=== PATIENT | male | born 1980 | race Caucasian/White ===

== ENCOUNTER 2023-02-10 08:25 | Inpatient (IN) | payer MEDICAID ==
[~2023-02-10] VITALS: Ht 170.2 cm; Wt 64.4 kg
--- NOTE | 2023-02-10 08:52 | NUR ---
at bedside exam in progress as pt. walked in.
[2023-02-10] MEDS ORDERED: IV NORMAL SALINE 1000 ML BAG IV ONE (09:00)
[2023-02-10] MEDS ORDERED: DEXTROSE 50% 50 ML DISP.SYRIN IV ONE (09:00)
[2023-02-10 09:15] LABS: HEMATOCRIT 35.4 % (36.7-47.1); MEAN CORPUSCULAR HEMOGLOBIN 31.1 uug (23.8-33.4); MEAN CORPUSCULAR VOLUME 96.4 fL (73.0-96.2); PLATELET COUNT (AUTO) 135 K/uL (152-348)
[2023-02-10 09:24] LABS: CARBON DIOXIDE 14 mmol/L (21-32); CHLORIDE 102 mmol/L (98-107); CREATININE 0.8 mg/dL (0.6-1.3); GLUCOSE 74 mg/dL (74-106); POTASSIUM 3.1 mmol/L (3.5-5.1); UREA NITROGEN, BLOOD 13 mg/dL (7-18)
[2023-02-10 09:33] LABS: ALANINE AMINOTRANSFERASE 114 U/L (16-63); ALKALINE PHOSPHATASE 50 U/L (50-136); ASPARTATE AMINOTRANSFERASE 143 U/L (15-37); BILIRUBIN,DIRECT 0.3 mg/dL (0.0-0.2); BILIRUBIN,TOTAL 0.9 mg/dL (0.2-1.0); ETHANOL < 3 MG/DL (0-0); TOTAL PROTEIN, SERUM 8.1 g/dL (6.4-8.2)
[2023-02-10 09:38] LABS: THYROID STIMULATING HORMONE 1.654 mIU/mL (0.358-3.740)
[2023-02-10 09:39] LABS: ACETAMINOPHEN < 2.0 ug/mL (10-30)
--- NOTE | 2023-02-10 10:03 | NUR ---
follow up accucheck 165. doctor aware
[2023-02-10] MEDS ORDERED: MAGNESIUM SULFATE/D5W 200 ML ONE (10:10)
[2023-02-10] MEDS ORDERED: ONDANSETRON 4 MG/2 ML VIAL IV ONE (10:15)
[2023-02-10] MEDS ORDERED: IV D5LR 1,000 ML IV ONE (10:15)
[2023-02-10] MEDS: MAGNESIUM SULFATE/D5W 100 ML IV SCH ×2 (10:17→11:07)
[2023-02-10] MEDS: POTASSIUM CHLORIDE 50 ML IV SCH ×3 (10:30→15:00)
[2023-02-10] MEDS ORDERED: CHLORDIAZEPOXIDE HCL 25 MG CAPSULE PO ONE (10:30)
--- NOTE | 2023-02-10 10:44 | NUR ---
Social Work consult was requested for a patient in the emergency room for homeless and substance abuse resources. Patient is a 42-year-old male. Patient is alert and oriented X4. Patient presents with depressed mood and congruent affect. Patient appears to be withdrawing from alcohol. Patient states he does not have a primary contact. Patient states he is homeless, and MILKA provided the patient with homeless resources for [facility] [place] [address] [place] [address] ([phone]) and [facility] [address] [facility] [address] ([phone]). MILKA gave resources for [employer] [facility] [address] [facility] [address]. Patient states he is not currently working, but he is receiving social security and wants to get his GED soon. Patient states he has a history of alcohol abuse, and his last drink was last night. MILKA provided the patient with substance abuse resources for [facility] [address] [facility] [address] ([phone]), [facility] [address] [facility] [address] ([phone]), and [address] [address] ([phone]). Patient appears ambivalent about treatment and states he was at [facility] two weeks ago and left. Patient states he has a history of anxiety and depression, and patient denies suicidal or homicidal ideation. MILKA provided the patient with the mental health resource for [facility] [address] [facility] [place] [address] ([phone]). MILKA provided the patient with a TAP card for discharge and patient states he will follow up with the resources provided.
[2023-02-10] MEDS ORDERED: CHLORDIAZEPOXIDE HCL 25 MG CAPSULE ONE (10:55)
--- NOTE | 2023-02-10 11:25 | NUR ---
on the phone with [facility] today.
--- NOTE | 2023-02-10 13:09 | NUR ---
SBP of 136/89, 98% FIO2. 100 HR NSR.
--- NOTE | 2023-02-10 13:12 | NUR ---
report received from Azalia MONTAÑO RN
--- NOTE | 2023-02-10 13:18 | NUR ---
Telephone report given to Luzmaria Yeh all questions answered.
[2023-02-10] MEDS ORDERED: CHLORDIAZEPOXIDE HCL 25 MG CAPSULE PO SCH (13:30)
[2023-02-10] MEDS ORDERED: MAGNESIUM HYDROXIDE 30 ML LIQUID UDC PO PRN (13:30)
[2023-02-10] MEDS ORDERED: ONDANSETRON 4 MG/2 ML VIAL IV PRN (13:30)
[2023-02-10] MEDS ORDERED: LORAZEPAM 2 MG/1 ML VIAL IV PRN (13:30)
[2023-02-10] MEDS ORDERED: REMEDY ESSENTIAL ZINC PASTE 113 GM TP PRN (13:30)
[2023-02-10] MEDS ORDERED: ACETAMINOPHEN 325 MG TABLET PO PRN (13:30)
--- NOTE | 2023-02-10 13:30 | NUR ---
MRSA and covid specimens collected and sent.
--- NOTE | 2023-02-10 13:31 | NUR ---
Awaiting test results to take pt. to room 316 Per protocol as I was informed by 3rd floor R.N. charge.
--- NOTE | 2023-02-10 14:20 | NUR ---
patient taken up to room 316 got situated in bed. and at this time seen by attending Thee Aleman. receiving rn endorse the finishing of potassium last 10 meq.
[2023-02-10 14:30] VITALS: BP 128/82
[2023-02-10] MEDS: IV NS 1000 ML 1,000 ML IV SCH (15:46)
[2023-02-10] MEDS ORDERED: FOLIC ACID 1 MG in IV DEXTROSE 5% 50 ML IV SCH (16:30)
[2023-02-10 16:32] LABS: *BLOOD, URINE 1+ (NEGATIVE); *CLARITY,URINE CLEAR (CLEAR); *COLOR,URINE YELLOW (YELLOW); *KETONES,URINE 3+ (NEGATIVE); *UROBILINOGEN,URINE 0.2 E.U./dl (NORMAL); LEUKOCYTE ESTERASE ,URINE NEGATIVE (NEGATIVE); NITRITE, URINE NEGATIVE (NEGATIVE); UGLUCOSE NEGATIVE (NEGATIVE)
[2023-02-10 16:40] LABS: *BILIRUBIN,URIN 1+ (NEGATIVE)
[2023-02-10 16:54] LABS: *AMPHETAMINE, URINE NEGATIVE (NEGATIVE); *CANNABINOID, URINE NEGATIVE (NEGATIVE); *COCCAINE, URINE NEGATIVE (NEGATIVE); *PHENCYCLIDINE SCREEN,URINE NEGATIVE (NEGATIVE)
[2023-02-10] MEDS ORDERED: THIAMINE HCL INJ 100 MG in IV DEXTROSE 5% 50 ML IV SCH (17:00)
[2023-02-10] MEDS ORDERED: POLYVINYL ALCOHOL OPHT DROPS 15 ML BOTTLE EACHEYE PRN (18:15)
[2023-02-10 19:25] LABS: BACTERIA,URINE NONE SEEN /HPF (NONE SEEN); WBC,URINE NONE SEEN /HPF (0-3)
[2023-02-10 19:26] LABS: SQUAMOUS EPITHELIAL CELL,UR NONE SEEN /HPF (NONE SEEN)
[2023-02-10 20:00] VITALS: BP 126/85
[2023-02-11] VITALS: BP 119/70
[2023-02-11] MEDS: IV NS 1000 ML 1,000 ML IV SCH ×2 (02:03→11:40)
[2023-02-11 04:00] VITALS: BP 116/74
[2023-02-11 06:46] LABS: HEMATOCRIT 32.5 % (36.7-47.1); MEAN CORPUSCULAR VOLUME 94.3 fL (73.0-96.2); PLATELET COUNT (AUTO) 126 K/uL (152-348)
[2023-02-11 07:21] LABS: CARBON DIOXIDE 20 mmol/L (21-32); CREATININE 0.6 mg/dL (0.6-1.3); GLUCOSE 78 mg/dL (74-106); MAGNESIUM 1.4 mg/dL (1.8-2.4); PHOSPHOROUS 2.6 mg/dL (2.5-4.9); UREA NITROGEN, BLOOD 6 mg/dL (7-18)
--- NOTE | 2023-02-11 07:34 | NUR ---
WOUND CARE CONSULT: PT PRESENTS WITH MULTIPLE SKIN ISSUES, PRESENT ON ADMISSION INCLUDING SACRAL INTACT DEEP TISSUE INJURY, RASH TO GROIN FOLDS, PERINEUM AND BUTTOCKS WELL DRY ABRASIONS TO LOWER EXTREMITIES AND GENERALIZED SKIN CONDITION WITH PATCHY LESIONS ALL OVER BODY (EXCEPT FACE). DEFER TO PMD FOR GENERALIZED PATCHY SKIN CONDITION. RECOMMENDATIONS MADE FOR SKIN PROTECTION, SACRAL AND GROIN/PERINEAL RASH. DISCUSSED WITH NURSING STAFF. MD IN AGREEMENT WITH PLAN OF CARE. Addendum: 02/11/23 at 0739 by CONNOR SPANGLER RN PT ALSO NOTED TO HAVE THICKENED LESIONS WITH DISCOLORATION TO BILATERAL HIPS, PRESENT ON ADMISSION.
[2023-02-11 07:36] LABS: CHLORIDE 109 mmol/L (98-107)
[2023-02-11 07:50] LABS: POTASSIUM 2.6 mmol/L (3.5-5.1)
--- NOTE | 2023-02-11 07:51 | NUR ---
critical lab value reported. K-2.6. made aware. NNO at this time.
--- NOTE | 2023-02-11 07:52 | NUR ---
pt was seen by wound care nurse.
[2023-02-11] MEDS: POTASSIUM CHLORIDE 50 ML IV SCH ×4 (08:39→12:01)
[2023-02-11] MEDS: CLOTRIMAZOLE 1% CREAM 30 GM TUBE TOP SCH ×2 (08:40→17:00)
[2023-02-11] MEDS: MULTIVITAMINS,THERAPEUTIC TABLET PO SCH (08:40)
[2023-02-11] MEDS ORDERED: THIAMINE HCL 200 MG/2 ML VIAL IV SCH (09:00)
[2023-02-11] MEDS ORDERED: POTASSIUM CHLORIDE 20 MEQ TAB.PRT.SR PO ONE ×2 (09:00→14:00)
[2023-02-11] MEDS ORDERED: CHLORDIAZEPOXIDE HCL 25 MG CAPSULE PO PRN (09:04)
--- NOTE | 2023-02-11 09:10 | NUR ---
PER PHARMACY VANCO TROUGH 2100. HOLD DOSE FOR 2200 IF VANCO TROUGH >20
[2023-02-11] MEDS: MAGNESIUM SULFATE/D5W 100 ML IV SCH ×2 (09:56→10:55)
--- NOTE | 2023-02-11 11:13 | NUR ---
PT eval done. Pt able to ambulate with fww with 1 person assist.
[2023-02-11 11:23] VITALS: BP 131/84
[2023-02-11] MEDS: THIAMINE HCL 100 MG TABLET PO SCH (12:21)
[2023-02-11] MEDS: FOLIC ACID 1 MG TABLET PO SCH (12:21)
[2023-02-11 15:59] LABS: NEUTROPHILS % (MANUAL) 0 % (42-75)
[2023-02-11 16:36] VITALS: BP 123/69
[2023-02-11 20:00] VITALS: BP 135/87
[2023-02-12] VITALS: BP 109/76
[2023-02-12] MEDS: IV NS 1000 ML 1,000 ML IV PRN ×2 (00:06→10:22)
[2023-02-12 04:00] VITALS: BP 130/88
[2023-02-12 06:31] LABS: HEMATOCRIT 31.4 % (36.7-47.1); MEAN CORPUSCULAR HEMOGLOBIN 31.2 uug (23.8-33.4); MEAN CORPUSCULAR VOLUME 94.2 fL (73.0-96.2); PLATELET COUNT (AUTO) 134 K/uL (152-348)
[2023-02-12 06:56] LABS: CARBON DIOXIDE 24 mmol/L (21-32); CHLORIDE 107 mmol/L (98-107); CREATININE 0.5 mg/dL (0.6-1.3); GLUCOSE 108 mg/dL (74-106); MAGNESIUM 1.3 mg/dL (1.8-2.4); PHOSPHOROUS 2.5 mg/dL (2.5-4.9); POTASSIUM 2.9 mmol/L (3.5-5.1); UREA NITROGEN, BLOOD 3 mg/dL (7-18)
[2023-02-12 08:00] VITALS: BP 143/95
--- NOTE | 2023-02-12 08:00 | NUR ---
Received patient lying in bed awake, alert and oriented. With ongoing IVF NS @ 100cc/hr infusing well at left forearm g. 20. No signs of distress, no complain. SR on tele monitor at 68bpm. Needs attended
[2023-02-12] MEDS: MULTIVITAMINS,THERAPEUTIC TABLET PO SCH (08:21)
[2023-02-12] MEDS: FOLIC ACID 1 MG TABLET PO SCH (08:22)
[2023-02-12] MEDS: THIAMINE HCL 100 MG TABLET PO SCH (08:22)
[2023-02-12 08:28] LABS: EOSINOPHILS % (MANUAL) 1 % (0-8); LYMPHOCYTES % (MANUAL) 25 % (20-40); MONOCYTES % (MANUAL) 14 % (2-10); NEUTROPHILS % (MANUAL) 60 % (42-75)
[2023-02-12] MEDS: CLOTRIMAZOLE 1% CREAM 30 GM TUBE TOP SCH (09:28)
[2023-02-12 11:44] VITALS: BP 135/86
[2023-02-12] MEDS ORDERED: CHLO25CA22 PO ×2 (12:13)
--- NOTE | 2023-02-12 12:24 | NUR ---
Seen and examined by Stefania Aleman with orders made and carried out. Patient for discharge, prepared discharge papers. Additional medications given prior to discharge.
[2023-02-12] MEDS: MAGNESIUM SULFATE/D5W 100 ML IV SCH ×2 (12:41→13:40)
[2023-02-12] MEDS: POTASSIUM CHLORIDE 20 MEQ TAB.PRT.SR PO SCH ×2 (12:42→16:06)
--- NOTE | 2023-02-12 15:30 | NUR ---
Removed IV catheter on left forearm and right antecubital area, clean and dry. Given and instructed discharge papers with homeless packet provided by social service agency director. All papers signed for discharge. Answered all questions, pt. verbalize understanding. Vital signs are normal at this time. No complain
[2023-02-12 15:52] VITALS: BP 143/86
--- NOTE | 2023-02-12 16:30 | NUR ---
Patient assisted for discharge via wheel chair going down the elevator. Instructed and given discharge summary papers. Discharge at 1630H
== END 2023-02-12 16:30 | disposition home or self-care (01) | DRG 351 ==
LOC: ER 08:25 → EDBD 08:25 → TELE3 13:10 → MEDSURG3 02-12 10:10
PROVIDERS: ADMIT Nurse Practitioner Acute Care; ATTEND Nurse Practitioner Acute Care
DX: M62.82 Rhabdomyolysis (principal); G92.8 Other toxic encephalopathy; E87.29 Other acidosis; D69.6 Thrombocytopenia, unspecified; D52.0 Dietary folate deficiency anemia; F10.139 Alcohol abuse with withdrawal, unspecified; Y90.0 Blood alcohol level of less than 20 mg/100 ml; E87.6 Hypokalemia; Z59.02 Unsheltered homelessness; E16.2 Hypoglycemia, unspecified; E83.42 Hypomagnesemia; R74.01 Elevation of levels of liver transaminase levels; E87.20 Acidosis, unspecified; I49.3 Ventricular premature depolarization
CPT/HCPCS: 36415; 70030-TC; 70450; 71045; 72125; 82747; 83735; 84100; 84443; 84484; 85014; 85025; 93005; A4663; A6213; G0378; G0480; J2405; J3411; J3475; J3480; J3490; J7040